=== PATIENT | female | born 2000 | race Two or more races ===

== ENCOUNTER → 2023-11-07 | Outpatient (CLI) | payer OTHER ==
[~2023-11-07] MED LIST: PRENTAB9 PO
== END ==
LOC: M WHC 10:40
PROVIDERS: ATTEND Obstetrics & Gynecology
DX: O36.5993 Maternal care for other known or suspected poor fetal growth, unspecified trimester, fetus 3 (principal); Z3A.35 35 weeks gestation of pregnancy

== ENCOUNTER 2023-11-12 05:55 | Inpatient (IN) | payer OTHER ==
[~2023-11-12] VITALS: Ht 149.9 cm; Wt 86.9 kg
[2023-11-12] VITALS (65 sets, daily range): BP systolic 98–205; BP diastolic 51–130; O2SAT 98
[2023-11-12] MEDS ORDERED: PRENTAB9 PO (06:09)
[2023-11-12] MEDS ORDERED: HOME MED LIST COMPLETE! XX SCH (06:10)
[2023-11-12] MEDS ORDERED: OXYTOCIN DRIP 30 UNITS in IV 1 EA IV PRN (08:35)
[2023-11-12] MEDS ORDERED: TRANEXAMIC ACID INJection 1,000 MG in NS 100 ML IV PRN (08:35)
[2023-11-12] MEDS ORDERED: METHYLERGONOVINE MALEATE 0.2MG/ML 1ML VIAL IM PRN (08:35)
[2023-11-12] MEDS ORDERED: CARBOPROST TROMETHAMINE 250 MCG/ML AMP IM PRN (08:35)
[2023-11-12] MEDS ORDERED: LIDOCAINE 1% MDV 20ML VIAL INFIL PRN (08:35)
[2023-11-12] MEDS: PENICILLIN G POTASSIUM 5 MU IV 5 MU in D5W MINI-BAG PLUS 100 ML IV STA (09:11)
[2023-11-12] MEDS: LACTATED RINGER'S 1000 ML IV STA (09:11)
[2023-11-12 09:26] LABS: HEMATOCRIT 35.9 % (36.0-47.0); HEMOGLOBIN 12.4 g/dl (12.0-15.5); MEAN CORPUSCULAR HEMOGLOBIN 31.7 pg (27.0-33.0); MEAN CORPUSCULAR HGB CONC 34.5 g/dl (32.0-36.5); MEAN CORPUSCULAR VOLUME 91.8 fl (80.0-96.0); PLATELET COUNT, AUTOMATED 314 10^3/uL (150-450); RED BLOOD COUNT 3.91 10^6/uL (4.00-5.40); WHITE BLOOD COUNT 17.4 10^3/uL (4.0-10.0)
[2023-11-12 10:01] LABS: HEPATITIS B SURFACE ANTIBODY POSITIVE (POSITIVE)
[2023-11-12] MEDS ORDERED: diphenhydrAMINE 50MG/ML VIAL IV PRN ×2 (10:20→10:25)
[2023-11-12] MEDS ORDERED: EPIDURAL/PCA KEYS XX PRN ×2 (10:20→10:25)
[2023-11-12] MEDS ORDERED: NALBUPHINE HCL 10 MG/ML 1ML AMP IV PRN (10:20)
[2023-11-12] MEDS ORDERED: fentaNYL CITRATE 500 MCG, BUPIVACAINE HCL 0.5% 31.25 ML in NS 208.75 ML EPIDURAL SCH (10:20)
[2023-11-12] MEDS ORDERED: METOCLOPRAMIDE INJ 10MG/2ML VIAL IV PRN (10:20)
[2023-11-12] MEDS ORDERED: NALOXONE INJ 0.4MG/1ML VIAL IV PRN ×2 (10:20→10:25)
[2023-11-12] MEDS ORDERED: ONDANSETRON 4MG 2ML VIAL IV PRN ×2 (10:20→10:25)
[2023-11-12] MEDS ORDERED: ePHEDrine SULFATE 25 MG/5 ML(5MG/ML) SYRINGE IVP PRN (10:25)
[2023-11-12] MEDS ORDERED: LR 500 ML IV PRN (10:25)
[2023-11-12 10:27] LABS: HIV 1&2 SCREEN NEGATIVE (NEGATIVE)
[2023-11-12 10:35] LABS: HEPATITIS C VIRUS ABY INDEX 0.03 INDEX (<0.8)
[2023-11-12] MEDS ORDERED: FENTANYL 2MCG/ML ROPIVACAINE 0.2% IN 0.9% NACL 100ML IVBAG As Ordered ONE (10:35)
[2023-11-12] MEDS: LR 1,000 ML IV SCH (10:58)
[2023-11-12] MEDS: FENTANYL/ROPIVACAINE/NACL BAG 100 ML EPIDURAL SCH (10:59)
[2023-11-12] MEDS: PEN G POT 3,000,000 UNIT/50 ML 3,000,000 UNIT in IV 1 EA IV SCH (12:59)
[2023-11-12] MEDS ORDERED: OXYTOCIN DRIP 30 UNITS in IV 1 EA IV SCH (13:30)
[2023-11-12] MEDS: BUTORPHANOL 2 MG/ML 1ML VIAL IV ONE (15:34)
[2023-11-12] MEDS: PROMETHAZINE 25MG/ML 1ML VIAL IV ONE (15:34)
[2023-11-12] MEDS: OXYTOCIN DRIP 30 UNITS in IV 1 EA IV SCH (19:34)
[2023-11-12] MEDS ORDERED: IBUPROFEN 800 MG TAB PO PRN (19:40)
[2023-11-12] MEDS ORDERED: IBUPROFEN 600MG TAB PO PRN (19:40)
[2023-11-12] MEDS ORDERED: DOCUSATE SODIUM 100MG CAPSULE PO PRN (19:40)
[2023-11-12] MEDS ORDERED: ANUSOL HC CREAM 30GM TOP PRN (19:40)
[2023-11-12] MEDS ORDERED: RHO(D) IMMUNE GLOBULIN/MALTOSE 500MCG(2500IU)/2.2ML VIAL (WINRHO) IM SCH (19:40)
[2023-11-12] MEDS ORDERED: ACETAMINOPHEN TAB 650MG DOSE (2X325MG) PO PRN (19:40)
[2023-11-12] MEDS ORDERED: CALCIUM CARBONATE 500 MG CHEW U/D PO PRN (19:40)
[2023-11-12] MEDS ORDERED: ACETAMINOPHEN 500 MG TAB PO PRN (19:40)
[2023-11-13] MEDS: DIBUCAINE 1% OINTMENT 30GM TOP PRN (03:23)
[2023-11-13 06:17] VITALS: BP 143/83; O2SAT 98
[2023-11-13] MEDS: FERROUS SULFATE 325MG TAB PO SCH (08:02)
[2023-11-13] MEDS: PRENATAL VITAMINS CHEWABLE TABLET PO SCH (08:02)
[2023-11-13 10:54] LABS: HEMATOCRIT 32.1 % (36.0-47.0); HEMOGLOBIN 10.8 g/dl (12.0-15.5); MEAN CORPUSCULAR HEMOGLOBIN 31.1 pg (27.0-33.0); MEAN CORPUSCULAR HGB CONC 33.6 g/dl (32.0-36.5); MEAN CORPUSCULAR VOLUME 92.5 fl (80.0-96.0); PLATELET COUNT, AUTOMATED 266 10^3/uL (150-450); RED BLOOD COUNT 3.47 10^6/uL (4.00-5.40); WHITE BLOOD COUNT 17.3 10^3/uL (4.0-10.0)
[2023-11-13 11:28] LABS: URIC ACID 9.1 MG/DL (3.1-7.8)
[2023-11-13 11:30] LABS: LDH LACTATE DEHYDROGENASE 204 U/L (120-246)
[2023-11-13 11:31] LABS: ALT/SGPT 11 U/L (7.0-40); AST/SGOT 16 U/L (<34); BILIRUBIN,TOTAL 0.4 MG/DL (0.3-1.2); GLOMERULAR FILTRATION RATE > 60.0 (>60)
[2023-11-13 18:31] VITALS: BP 127/80; O2SAT 98
[2023-11-14 06:00] VITALS: BP 138/81; O2SAT 97
[2023-11-14] MEDS: MEASLES,MUMPS,RUBELLA VACCINE INJ (MMR-II) SC.IMMUN ONE (08:24)
[2023-11-14 18:00] VITALS: BP 132/77; O2SAT 97
[2023-11-15 06:00] VITALS: BP 116/71; O2SAT 98
== END 2023-11-15 13:55 | disposition home or self-care (01) | DRG 807 ==
LOC: M LDO 05:55 → M LDI 08:40 → M OBS 22:12
PROVIDERS: ADMIT Obstetrics & Gynecology; ATTEND Obstetrics & Gynecology
PROC: 10E0XZZ Delivery of Products of Conception, External Approach (ICD-10-PCS; principal; 2023-11-12)
DX: O60.14X0 Preterm labor third trimester with preterm delivery third trimester, not applicable or unspecified (principal); Z37.0 Single live birth; Z3A.36 36 weeks gestation of pregnancy; O36.5990 Maternal care for other known or suspected poor fetal growth, unspecified trimester, not applicable or unspecified

== ENCOUNTER → 2024-12-26 | Outpatient (CLI) | payer OTHER | LOC: M PLALAB 09:53 | PROVIDERS: ATTEND Obstetrics & Gynecology | DX: Z34.80 Encounter for supervision of other normal pregnancy, unspecified trimester (principal) ==

== ENCOUNTER → 2025-02-03 | Outpatient (CLI) | payer OTHER | LOC: M WHC 13:13 | PROVIDERS: ATTEND Nurse Practitioner Family | DX: Z34.82 Encounter for supervision of other normal pregnancy, second trimester (principal) ==